=== PATIENT | female | born 1935 | race Caucasian/White ===

== ENCOUNTER 2021-08-14 09:08 | Emergency (ER) | payer MEDICARE, BC | END 2021-08-14 10:16 | disposition home or self-care (01) | LOC: JP.ED 09:08 | DX: R04.0 Epistaxis (principal); Z88.0 Allergy status to penicillin | CPT/HCPCS: 99282; 99283 ==

== ENCOUNTER 2021-08-14 14:41 | Emergency (ER) | payer MEDICARE, BC | END 2021-08-14 15:54 | LOC: JP.ED 14:41 | DX: R04.0 Epistaxis (principal); Z88.0 Allergy status to penicillin | CPT/HCPCS: 30901; 99281; 99282; 99283; 99284-25 ==

== ENCOUNTER 2022-02-07 00:57 | Emergency (ER) | payer MEDICARE, BC ==
[2022-02-07] MEDS ORDERED: Tranexamic Acid 1,000 MG/10 ML Vial ONE (01:30)
== END 2022-02-07 07:15 | disposition home or self-care (01) ==
LOC: JP.ED 00:57
DX: R04.0 Epistaxis (principal); Z79.01 Long term (current) use of anticoagulants
CPT/HCPCS: 30903; 99283

== ENCOUNTER 2022-03-06 01:00 | Emergency (ER) | payer MEDICARE, BC ==
[2022-03-06] MEDS ORDERED: Oxymetazoline 0.05% Nasal Spray 30 ML Bottle NAS ONE (01:45)
== END 2022-03-06 03:29 | disposition home or self-care (01) ==
LOC: JP.ED 01:00
DX: R04.0 Epistaxis (principal); Z88.0 Allergy status to penicillin; Z79.82 Long term (current) use of aspirin; Z79.899 Other long term (current) drug therapy; Z87.891 Personal history of nicotine dependence
CPT/HCPCS: 99283; A9270

== ENCOUNTER 2023-06-13 08:12 | Day surgery (SDC) | payer MEDICARE, BC ==
[~2023-06-13 08:12] MED LIST: Propofol 200 MG/20 ML SDV ONE; fentaNYL 100 MCG/2 ML SDV ONE
[2023-06-13] MEDS: Acetaminophen 500 MG Tab PO ONE (09:12)
[2023-06-13] MEDS: Lactated Ringers 1,000 ML IV SCH (09:22)
[2023-06-13] MEDS: Clindamycin in 0.9 % Sod Chlor 900 MG in Premix Bag 1 BAG IV ONE (10:10)
[2023-06-13] MEDS ORDERED: Bacitracin Oint 1 GM U/D Packet ONE (10:41)
[2023-06-13] MEDS ORDERED: Propofol 200 MG/20 ML SDV ONE (10:55)
[2023-06-13] MEDS: Bacitracin Oint 1 GM U/D Packet ONE (10:55)
[2023-06-13] MEDS: Lidocaine 1% with EPINEPHrine 1:100,000 50 ML MDV ONE (11:14)
[2023-06-13] MEDS: Bupivacaine 0.5% 50 ML MDV ONE (11:14)
== END 2023-06-13 13:24 | disposition home or self-care (01) ==
LOC: JP.SDS 08:12
PROVIDERS: ATTEND Student in an Organized Health Care Education/Training Program
DX: L57.0 Actinic keratosis (principal); L98.7 Excessive and redundant skin and subcutaneous tissue; Z88.0 Allergy status to penicillin; Z79.899 Other long term (current) drug therapy; Z88.8 Allergy status to other drugs, medicaments and biological substances; Z85.828 Personal history of other malignant neoplasm of skin
CPT/HCPCS: 11404; 11424; 88305; A9270; J0736; J2704; J3010; J3490; J7120